=== PATIENT | male | born 1945 | race Hispanic/Latino ===

== ENCOUNTER → 2018-02-24 | Outpatient (CLI) | payer MEDICARE ==
[~2018-02-24] MED LIST: IOPAMIDOL 370 MG/ML 200 ML INFUS..BTL INJ ONE; SODIUM CHLORIDE 0.9% 250ML 250 ML ONE
[2018-02-24 10:24] LABS: BLOOD UREA NITROGEN 9 mg/dL (7-26); BUN/CREATININE RATIO 11 (6-25); CREATININE, SERUM 0.79 mg/dL (0.72-1.25); EST GLOMERULAR FILTRATION RATE > 60 ML/MIN (60-)
--- NOTE | 2018-02-24 13:01 | Diagnostic Imaging Report ---
EXAM: CT Abdomen and Pelvis WITHOUT and WITH contrast INDICATION: \[id number] \S\1100 \S\GROSS HEMATURIA COMPARISON: None. TECHNIQUE: Abdomen and pelvis were scanned utilizing a multidetector helical scanner from the lung base to the pubic symphysis before and after administration of IV contrast. Coronal and sagittal reformations were obtained. Hematuria (CT Urogram) protocol was performed. Scan was performed pre- in supine position and nephrogenic/excretory phase with a 10 minute split bolus in prone position. IV CONTRAST: 150 mL of Isovue-370 ORAL CONTRAST: Water COMPLICATIONS: None RADIATION DOSE: Total DLP: 533.81 mGy*cm Estimated effective dose: (DLP x 0.015 x size factor) mSv CTDIvol has been reviewed. It is below the limits set by the Radiation Protocol Committee (RPC). FINDINGS: LINES and TUBES: None. LOWER THORAX: Mild cardiomegaly. Nonspecific 3 mm lingular nodule (series 3, image 19). HEPATOBILIARY: No hepatic mass. Few hepatic hypodensities are too small to characterize. No biliary ductal dilation. GALLBLADDER: No radio-opaque stones or sludge. No wall thickening. SPLEEN: No splenomegaly. PANCREAS: No focal masses or ductal dilatation. ADRENALS: No adrenal nodules KIDNEYS/URETERS: Kidneys: Normal appearance bilaterally. No hydronephrosis or perinephric stranding. Cyst: None. Left renal superior pole subcentimeter hypodensity is too small to characterize, but probably a cyst. Mass: None. Stones: None. Upper collecting systems: No irregularities or filling defects. Ureters: Small segment left mid ureter as well as distal right ureter nonopacification, likely due to peristalsis. Bladder: Filling defect within posterior left bladder is probably protruded left prostate gland, measuring approximately 2.7 x 3 cm (series 6, image 147). GI TRACT: No abnormal distention, wall thickening, or evidence of bowel obstruction. Appendix is normal. Fluid within distal esophagus, suggestive of gastroesophageal reflux. PELVIC ORGANS/BLADDER: Enlarged prostate gland, especially on the left side, which protrudes into the bladder lumen. LYMPH NODES: No lymphadenopathy. VESSELS: There is mild atherosclerotic disease in the aorta and major arterial branches. PERITONEUM / RETROPERITONEUM: No free air or fluid. BONES: Exaggerated lordosis of lumbar spine. Degenerative changes of spine. SOFT TISSUES: Unremarkable. IMPRESSION: 1. No nephrolithiasis or evidence of obstructive urolithiasis. 2. No filling defects within opacified collecting system/ureters. 3. Enlarged prostate gland, especially on the left side which protrudes into the bladder lumen versus less likely posterior left bladder mass. Recommend correlation with cystoscopy. 4. Fluid within distal esophagus, suggestive of gastroesophageal reflux. Signed by: Dr. Ricardo Alicia MD on 02/24/2018 12:57 PM
== END ==
LOC: CT 09:17
PROVIDERS: ATTEND Urology
DX: R31.0 Gross hematuria (principal)
CPT/HCPCS: 36415; 74178; 82565; 84520; J7050; Q9967